=== PATIENT | female | born 1965 | race Caucasian/White ===

== ENCOUNTER 2016-03-22 12:36 | Inpatient (IN) | payer OTHER ==
[2016-03-22 13:41] VITALS: BMI 32.0
--- NOTE | 2016-03-22 15:24 | HP ---
Admission [facility] Chief Complaint: I was at [facility] for detox from alcohol, benzodiazapine and cocaine today and now ready for rehab. Allergies/Adverse Reactions: Allergies Allergy/AdvReac Type Severity Reaction Status Date / Time No Known Allergies Allergy Verified 03/22/16 13:25 History of Present Illness: pt is a 51yr old female with a history of alcohol, benzodiazpine and cocaine dependence seeking rehab for further treatment. Exam Limitations: No Limitations - Ebola screening Have you traveled outside of the country in the last 21 days: No Have you had contact with anyone from an Ebola affected area: No Have you been sick,other than usual withdrawal symptoms: No Do you have a fever: No - Review of Systems Constitutional: No Symptoms Reported EENT: reports: No Symptoms Reported Respiratory: reports: No Symptoms reported Cardiac: reports: No Symptoms Reported GI: reports: Constipated : reports: No Symptoms Reported Musculoskeletal: reports: No Symptoms Reported Integumentary: reports: No Symptoms Reported Neuro: reports: No Symptoms reported Endocrine: reports: No Symptoms Reported Hematology: reports: No Symptoms Reported Psychiatric: reports: Judgement Intact, Orientated x3, Agitated, Anxious Other Systems: Reviewed and Negative Patient History - Patient Medical History Hx Anemia: No Hx Asthma: No Hx Chronic Obstructive Pulmonary Disease (COPD): No Hx Cancer: No Hx Cardiac Disorders: No Hx Congestive Heart Failure: No Hx Hypertension: No Hx Hypercholesterolemia: No Hx Pacemaker: No HX Cerebrovascular Accident: No Hx Seizures: No Hx Dementia: No Hx Diabetes: No Hx Gastrointestinal Disorders: No Hx Liver Disease: No Hx Genitourinary Disorders: No Hx Sexually Transmitted Disorders: No Hx Renal Disease (ESRD): No Hx Thyroid Disease: No Hx Human Immunodeficiency Virus (HIV): No Hx Hepatitis C: Yes Hx Depression: No Hx Suicide Attempt: No (denies) Hx Bipolar Disorder: No Hx Schizophrenia: No - Patient Surgical History Past Surgical History: No - PPD History Previous Implant?: Yes Documented Results: Negative w/proof PPD to be Administered?: No - Reproductive History Patient is a Female of Child Bearing Age (11 -55 yrs old): Yes LMP comment: 6months ago Patient : No - Smoking Cessation Smoking history: Current every day smoker Have you smoked in the past 12 months: Yes Aproximately how many cigarettes per day: 2 Hx Chewing Tobacco Use: No Initiated information on smoking cessation: Yes 'Breaking Loose' booklet given: 03/22/16 - Substance & Tx. History Hx Alcohol Use: Yes Hx Substance Use: Yes Substance Use Type: Alcohol, Cocaine, Marijuana Family Disease History - Family Disease History Family History: Denies Admission Physical Exam [facility] - Vital Signs Vital Signs: Vital Signs - 24 hr 03/22/16 13:38 Temperature 97.3 F L Pulse Rate 50 L Respiratory 18 Rate Blood Pressure 141/75 - Physical General Appearance: Yes: Appropriately Dressed, Moderate Distress, Obese, Irritable, Sweating, Anxious HEENTM: Yes: Normal Voice Respiratory: Yes: Lungs Clear, Normal Breath Sounds, No Respiratory Distress Neck: Yes: No masses,lesions,Nodules Breast: Yes: Within Normal Limits Cardiology: Yes: Regular Rhythm, Regular Rate, S1, S2 Abdominal: Yes: Normal Bowel Sounds, Non Tender, Soft Genitourinary: Yes: Within Normal Limits Back: Yes: Normal Inspection Musculoskeletal: Yes: full range of Motion, Gait Steady Extremities: Yes: Normal Capillary Refill, Normal Inspection, Non-Tender, Tremors Neurological: Yes: Fully Oriented, Alert, Normal Response Integumentary: Yes: Normal Color, Diaphoresis Lymphatic: Yes: Within Normal Limits - Diagnostic (1) Alcohol abuse Current Visit: No Status: Chronic (2) Cocaine abuse Current Visit: No Status: Chronic (3) Nicotine dependence Current Visit: Yes Status: Chronic Qualifiers: Nicotine product type: cigarettes Substance use status: uncomplicated Qualified Code(s): F17.210 - Nicotine dependence, cigarettes, uncomplicated (4) Plaque psoriasis Current Visit: Yes Status: Chronic Cleared for Admission [facility] - Detox or Rehab [facility] Level of Care: Medically Managed Claeared for Rehab Admission: Yes [facility] Breath Alcohol Content Breath Alcohol Content: 0 Urine Pregancy Test - Result Urine Test Results: Negative- NO Line Present Urine Drug Screen - Results Drug Screen Negative: No Urine Drug Screen Results: MICHAEL-Cocaine, BZO-Benzodiazepines, MTD-Methadone
[2016-03-22] MEDS ORDERED: MENTHOL/PHENOL 1 EACH UD MM PRN (15:37)
[2016-03-22] MEDS ORDERED: MAG HYDROX/AL HYDROX/SIMETH 30 ML UNIT-DOSE CUP PO PRN (15:37)
[2016-03-22] MEDS ORDERED: LOPERAMIDE HCL 2 MG CAPSULE PO PRN (15:37)
[2016-03-22] MEDS ORDERED: ACETAMINOPHEN 325 MG TABLET (FP) PO PRN (15:37)
[2016-03-22] MEDS ORDERED: guaiFENesin/D-METHORPHAN HB 10 ML UNIT-DOSE CUPS PO PRN (15:37)
[2016-03-22] MEDS ORDERED: P-EPHED 60MG/TRIPROLIDI 2.5MG TABLET PO PRN (15:37)
[2016-03-22] MEDS ORDERED: IBUPROFEN 400 MG TABLET (FP) PO PRN (15:37)
[2016-03-22] MEDS ORDERED: MAGNESIUM CITRATE 300 ML BOTTLE PO PRN (15:37)
[2016-03-22] MEDS ORDERED: NICOTINE POLACRILEX 4 MG GUM BC PRN (15:37)
[2016-03-22] MEDS: FLUOCINONIDE 0.05% CREAM (60 GM TUBE) TP SCH ×2 (18:00→21:41)
[2016-03-22] MEDS: THIAMINE HCL 100 MG TABLET (FP) PO SCH (21:40)
[2016-03-22 22:36] LABS: URINE APPEARANCE CLEAR; URINE BILIRUBIN NEGATIVE (NEGATIVE); URINE BLOOD NEGATIVE (NEGATIVE); URINE COLOR YELLOW; URINE GLUCOSE (UA) NEGATIVE (NEGATIVE); URINE KETONE NEGATIVE (NEGATIVE); URINE LEUK ESTERASE NEGATIVE (NEGATIVE); URINE NITRITE NEGATIVE (NEGATIVE); URINE PROTEIN NEGATIVE (NEGATIVE); URINE UROBILINOGEN 2.0 E.U/dl E.U./dl (0.2-1.0)
[2016-03-23] MEDS ORDERED: METHADONE HCL 40 MG DISPERSABLE TABLET ONE (04:14)
[2016-03-23] MEDS ORDERED: METHADONE HCL 10 MG TABLET ONE (04:14)
[2016-03-23] MEDS ORDERED: METHADONE HCL 10 MG TABLET PO SCH (06:00)
[2016-03-23] MEDS: METHADONE 40 MG, METHADONE 30 MG PO SCH (06:25)
[2016-03-23] MEDS: PRENATAL VITAMINS W/ FOLIC ACID TABLET (FP) PO SCH (10:21)
[2016-03-23] MEDS: NICOTINE 21 MG/24 HOURS TOPICAL PATCH TD SCH (10:21)
[2016-03-23] MEDS: FLUOCINONIDE 0.05% CREAM (60 GM TUBE) TP SCH ×4 (10:21→21:41)
[2016-03-23 11:10] LABS: MCH 30.1 pg (25.7-33.7); MCHC 33.1 g/dl (32.0-36.0); MEAN CELL VOLUME 90.9 fl (80-96); MEAN PLT VOLUME 11.1 fl (7.5-11.1); PLATELET COUNT 80 K/MM3 (134-434); RDW 14.2 % (11.6-15.6); WHITE BLOOD COUNT 4.5 K/mm3 (4.0-10.0)
[2016-03-23 11:41] LABS: ALBUMIN 3.3 g/dl (3.4-5.0); SGOT/AST 76 U/L (15-37); SGPT/ALT 69 U/L (12-78)
[2016-03-23 11:43] LABS: ALK PHOS 92 U/L (45-117); ANION GAP 7 (8-16); BILIRUBIN,TOTAL 0.8 mg/dL (0.2-1.0); CALCIUM 8.1 mg/dL (8.5-10.1); CO2 33 mmol/L (21-32); CREATININE 0.8 mg/dL (0.55-1.02); GLUCOSE,RANDOM 62 mg/dL (74-106); TOT PROT 8.2 g/dl (6.4-8.2)
[2016-03-23 12:13] LABS: HIV 1 & 2 AB NEGATIVE; HIV 1 AGp24 NEGATIVE
[2016-03-23] MEDS ORDERED: PT OWN MED DRAWER 7, Y5N ONE (14:11)
[2016-03-23] MEDS: MAGNESIUM HYDROX 2400MG/30ML ORAL SUSPENSION 30 ML CUP PO PRN (17:10)
[2016-03-23] MEDS: diphenhydrAMINE HCL 50 MG CAPSULE PO PRN (21:42)
[2016-03-23] MEDS: THIAMINE HCL 100 MG TABLET (FP) PO SCH (21:42)
[2016-03-24] MEDS ORDERED: METHADONE HCL 10 MG TABLET ONE (04:06)
[2016-03-24] MEDS ORDERED: METHADONE HCL 40 MG DISPERSABLE TABLET ONE (04:07)
[2016-03-24] MEDS: METHADONE 40 MG, METHADONE 30 MG PO SCH (06:55)
[2016-03-24] MEDS: FLUOCINONIDE 0.05% CREAM (60 GM TUBE) TP SCH ×4 (10:44→22:01)
[2016-03-24] MEDS: NICOTINE 21 MG/24 HOURS TOPICAL PATCH TD SCH (10:44)
[2016-03-24] MEDS: PRENATAL VITAMINS W/ FOLIC ACID TABLET (FP) PO SCH (10:44)
[2016-03-24] MEDS: THIAMINE HCL 100 MG TABLET (FP) PO SCH (21:41)
[2016-03-24] MEDS: diphenhydrAMINE HCL 50 MG CAPSULE PO PRN (21:41)
--- NOTE | 2016-03-24 23:45 | EKG ---
Test Reason : Blood Pressure : / mmHG Vent. Rate : 051 BPM Atrial Rate : 051 BPM P-R Int : 130 ms QRS Dur : 090 ms QT Int : 454 ms P-R-T Axes : 052 047 022 degrees QTc Int : 418 ms SINUS BRADYCARDIA OTHERWISE NORMAL ECG NO PREVIOUS ECGS AVAILABLE Confirmed by MIRACLE MIJARES MD ([id number]) on 03/24/2016 11:44:35 PM Referred By: Confirmed By:MIRACLE MIJARES MD
[2016-03-25] MEDS ORDERED: METHADONE HCL 10 MG TABLET ONE (03:31)
[2016-03-25] MEDS ORDERED: METHADONE HCL 40 MG DISPERSABLE TABLET ONE (03:32)
[2016-03-25] MEDS: METHADONE 40 MG, METHADONE 30 MG PO SCH (06:37)
--- NOTE | 2016-03-25 10:17 | HP ---
Psychiatrist Admission - Data Date of interview: 03/25/16 Admission source: [facility] Identifying data: This is the first admission to [address] [place] [address] for this 51 years old single H female mother of 25 years old daughter,residing with with family,supported by PA. Medical History: Significant for Hep C,Psoriasis. Psychiatric History: No previous psychiatric history,but reports sleeping difficulties due to anxiety,drug use.Never being on any psychotropic medications.Medicated herself with alcohol and drugs. Physical/Sexual Abuse/Trauma History: denies Vital Signs: Vital Signs - 24 hr 03/24/16 03/25/16 03/25/16 12:01 00:30 03:30 Temperature Pulse Rate 50 L Respiratory 16 16 Rate Blood Pressure 144/83 03/25/16 07:34 Temperature 97.8 F Pulse Rate 46 L Respiratory 18 Rate Blood Pressure 155/75 Allergies/Adverse Reactions: Allergies Allergy/AdvReac Type Severity Reaction Status Date / Time No Known Allergies Allergy Verified 03/22/16 13:25 Date of last physical exam: 03/22/16 Concur with the findings of this exam: Yes - Substance Abuse/Tx History Hx Alcohol Use: Yes (reports started drinking since 13 yo(6 packs of beer)) Hx Substance Use: Yes (cocaine and heroin since 16 yo,MMTP 70 mg,Xanax since 2014) Substance Use Type: Alcohol, Cocaine, Heroin, Tranquilizers Hx Substance Use Treatment: Yes (no previous inpatient treatment) - Admission Criteria Previous failed treatment: Yes Poor recovery environment: Yes Comorbidities: Yes Lacks judgement: Yes Mental Status Exam - Mental Status Exam Alert and Oriented to: Time, Place, Person Cognitive Function: Grossly Intact Patient Appearance: Well Groomed Mood: Anxious Affect: Mood Congruent, Labile Patient Behavior: Cooperative Speech Pattern: Clear Voice Loudness: Normal Thought Process: Goal Oriented Thought Disorder: Not Present Hallucinations: Denies Suicidal Ideation: Denies Homicidal Ideation: Denies Insight/Judgement: Fair Sleep: Difficulty falling asleep Appetite: Good Muscle strength/Tone: Normal Gait/Station: Normal Psychiatric Findings - Problem List ([place] 1, 2,3) (1) Nicotine dependence Current Visit: Yes Status: Chronic Qualifiers: Nicotine product type: cigarettes Substance use status: uncomplicated Qualified Code(s): F17.210 - Nicotine dependence, cigarettes, uncomplicated (2) Plaque psoriasis Current Visit: Yes Status: Chronic (3) Alcohol abuse Current Visit: Yes Status: Chronic (4) Cocaine abuse Current Visit: Yes Status: Chronic (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
[2016-03-25] MEDS: FLUOCINONIDE 0.05% CREAM (60 GM TUBE) TP SCH ×4 (10:27→21:51)
[2016-03-25] MEDS: NICOTINE 21 MG/24 HOURS TOPICAL PATCH TD SCH (10:28)
[2016-03-25] MEDS: PRENATAL VITAMINS W/ FOLIC ACID TABLET (FP) PO SCH (10:28)
[2016-03-25] MEDS: hydrOXYzine PAMOATE 50 MG CAPSULE (FP) PO PRN (13:33)
[2016-03-25] MEDS: THIAMINE HCL 100 MG TABLET (FP) PO SCH (21:50)
[2016-03-25] MEDS: DOCUSATE SODIUM 100 MG CAPSULE (FP) PO SCH (21:52)
[2016-03-25] MEDS: traZODone HCL 50 MG TABLET (FP) PO SCH (21:52)
[2016-03-26] MEDS ORDERED: METHADONE 40 MG, METHADONE 30 MG PO SCH ×2 (06:00→14:00)
[2016-03-26] MEDS ORDERED: PT OWN MED DRAWER 7, Y5N ONE ×3 (08:48→17:09)
[2016-03-26] MEDS: FLUOCINONIDE 0.05% CREAM (60 GM TUBE) TP SCH ×4 (10:30→21:48)
[2016-03-26] MEDS: NICOTINE 21 MG/24 HOURS TOPICAL PATCH TD SCH (10:30)
[2016-03-26] MEDS: PRENATAL VITAMINS W/ FOLIC ACID TABLET (FP) PO SCH (10:30)
[2016-03-26] MEDS ORDERED: METHADONE HCL 10 MG TABLET ONE (12:46)
[2016-03-26] MEDS ORDERED: METHADONE HCL 40 MG DISPERSABLE TABLET ONE (12:47)
[2016-03-26] MEDS: METHADONE 40 MG, METHADONE 30 MG PO SCH (13:20)
[2016-03-26] MEDS: traZODone HCL 50 MG TABLET (FP) PO SCH (21:49)
[2016-03-26] MEDS: DOCUSATE SODIUM 100 MG CAPSULE (FP) PO SCH (21:49)
[2016-03-26] MEDS: THIAMINE HCL 100 MG TABLET (FP) PO SCH (21:49)
[2016-03-27] MEDS: PRENATAL VITAMINS W/ FOLIC ACID TABLET (FP) PO SCH (10:35)
[2016-03-27] MEDS: FLUOCINONIDE 0.05% CREAM (60 GM TUBE) TP SCH ×4 (10:35→21:53)
[2016-03-27] MEDS: NICOTINE 21 MG/24 HOURS TOPICAL PATCH TD SCH (10:35)
[2016-03-27] MEDS: hydrOXYzine PAMOATE 50 MG CAPSULE (FP) PO PRN (10:37)
--- NOTE | 2016-03-27 12:02 | PN ---
[facility] Progress Note Note: Vital Signs (72 hours) discussed behavioral modifications: diet, wt loss and exercise to see if p will decrease overtime as she detoxes off alcohol and benzodiazepines. 03/24/16 03/25/16 03/25/16 12:01 00:30 03:30 Temperature Pulse Rate 50 L Respiratory 16 16 Rate Blood Pressure 144/83 03/25/16 03/26/16 03/26/16 07:34 00:30 03:30 Temperature 97.8 F Pulse Rate 46 L Respiratory 18 16 16 Rate Blood Pressure 155/75 03/26/16 03/27/16 03/27/16 07:01 00:30 03:30 Temperature 97.7 F Pulse Rate 68 Respiratory 16 18 18 Rate Blood Pressure 156/78 03/27/16 03/27/16 07:32 09:40 Temperature 97.3 F L Pulse Rate 56 L 56 L Respiratory 18 Rate Blood Pressure 206/70 144/84
[2016-03-27] MEDS ORDERED: METHADONE HCL 10 MG TABLET ONE (12:27)
[2016-03-27] MEDS ORDERED: METHADONE HCL 40 MG DISPERSABLE TABLET ONE (12:27)
[2016-03-27] MEDS: METHADONE 40 MG, METHADONE 30 MG PO SCH (13:01)
[2016-03-27] MEDS: traZODone HCL 50 MG TABLET (FP) PO SCH (21:52)
[2016-03-27] MEDS: THIAMINE HCL 100 MG TABLET (FP) PO SCH (21:52)
[2016-03-27] MEDS: DOCUSATE SODIUM 100 MG CAPSULE (FP) PO SCH (21:52)
[2016-03-28] MEDS: NICOTINE 21 MG/24 HOURS TOPICAL PATCH TD SCH (10:37)
[2016-03-28] MEDS: PRENATAL VITAMINS W/ FOLIC ACID TABLET (FP) PO SCH (10:51)
[2016-03-28] MEDS: FLUOCINONIDE 0.05% CREAM (60 GM TUBE) TP SCH ×4 (10:51→21:33)
[2016-03-28] MEDS ORDERED: METHADONE HCL 10 MG TABLET ONE (12:10)
[2016-03-28] MEDS ORDERED: METHADONE HCL 40 MG DISPERSABLE TABLET ONE (12:12)
[2016-03-28] MEDS: METHADONE 40 MG, METHADONE 30 MG PO SCH (13:38)
[2016-03-28] MEDS: traZODone HCL 50 MG TABLET (FP) PO SCH (21:32)
[2016-03-28] MEDS: DOCUSATE SODIUM 100 MG CAPSULE (FP) PO SCH (21:32)
[2016-03-28] MEDS: THIAMINE HCL 100 MG TABLET (FP) PO SCH (21:32)
[2016-03-29] MEDS ORDERED: PT OWN MED DRAWER 7, Y5N ONE ×2 (08:37→13:30)
[2016-03-29] MEDS: PRENATAL VITAMINS W/ FOLIC ACID TABLET (FP) PO SCH (11:01)
[2016-03-29] MEDS: NICOTINE 21 MG/24 HOURS TOPICAL PATCH TD SCH (11:01)
[2016-03-29] MEDS: FLUOCINONIDE 0.05% CREAM (60 GM TUBE) TP SCH ×4 (11:02→21:48)
[2016-03-29] MEDS ORDERED: METHADONE HCL 10 MG TABLET ONE (13:20)
[2016-03-29] MEDS ORDERED: METHADONE HCL 40 MG DISPERSABLE TABLET ONE (13:21)
[2016-03-29] MEDS: METHADONE 40 MG, METHADONE 30 MG PO SCH (13:25)
[2016-03-29] MEDS: traZODone HCL 50 MG TABLET (FP) PO SCH (21:47)
[2016-03-29] MEDS: THIAMINE HCL 100 MG TABLET (FP) PO SCH (21:47)
[2016-03-29] MEDS: DOCUSATE SODIUM 100 MG CAPSULE (FP) PO SCH (21:47)
[2016-03-30] MEDS: NICOTINE 21 MG/24 HOURS TOPICAL PATCH TD SCH (10:32)
[2016-03-30] MEDS: PRENATAL VITAMINS W/ FOLIC ACID TABLET (FP) PO SCH (10:32)
[2016-03-30] MEDS: FLUOCINONIDE 0.05% CREAM (60 GM TUBE) TP SCH ×4 (10:32→21:33)
[2016-03-30] MEDS ORDERED: METHADONE HCL 40 MG DISPERSABLE TABLET ONE (12:43)
[2016-03-30] MEDS ORDERED: METHADONE HCL 10 MG TABLET ONE (12:43)
[2016-03-30] MEDS: METHADONE 40 MG, METHADONE 30 MG PO SCH (13:02)
[2016-03-30] MEDS: DOCUSATE SODIUM 100 MG CAPSULE (FP) PO SCH (21:33)
[2016-03-30] MEDS: THIAMINE HCL 100 MG TABLET (FP) PO SCH (21:33)
[2016-03-30] MEDS: traZODone HCL 50 MG TABLET (FP) PO SCH (21:33)
[2016-03-31] MEDS: FLUOCINONIDE 0.05% CREAM (60 GM TUBE) TP SCH ×4 (10:19→21:35)
[2016-03-31] MEDS: PRENATAL VITAMINS W/ FOLIC ACID TABLET (FP) PO SCH (10:20)
[2016-03-31] MEDS: NICOTINE 21 MG/24 HOURS TOPICAL PATCH TD SCH (10:20)
[2016-03-31] MEDS ORDERED: METHADONE HCL 10 MG TABLET ONE (12:25)
[2016-03-31] MEDS ORDERED: METHADONE HCL 40 MG DISPERSABLE TABLET ONE (12:26)
[2016-03-31] MEDS: METHADONE 40 MG, METHADONE 30 MG PO SCH (13:01)
[2016-03-31] MEDS: DOCUSATE SODIUM 100 MG CAPSULE (FP) PO SCH (21:35)
[2016-03-31] MEDS: THIAMINE HCL 100 MG TABLET (FP) PO SCH (21:35)
[2016-03-31] MEDS: traZODone HCL 50 MG TABLET (FP) PO SCH (21:35)
[2016-04-01] MEDS: PRENATAL VITAMINS W/ FOLIC ACID TABLET (FP) PO SCH (10:16)
[2016-04-01] MEDS: FLUOCINONIDE 0.05% CREAM (60 GM TUBE) TP SCH ×4 (10:16→21:41)
[2016-04-01] MEDS: NICOTINE 21 MG/24 HOURS TOPICAL PATCH TD SCH (10:17)
[2016-04-01] MEDS: hydrOXYzine PAMOATE 50 MG CAPSULE (FP) PO PRN (10:17)
[2016-04-01] MEDS ORDERED: METHADONE HCL 40 MG DISPERSABLE TABLET ONE (10:57)
[2016-04-01] MEDS ORDERED: METHADONE HCL 10 MG TABLET ONE (10:57)
[2016-04-01] MEDS ORDERED: METHADONE HCL 10 MG TABLET PO SCH (14:30)
[2016-04-01] MEDS: METHADONE 40 MG, METHADONE 30 MG PO SCH (14:41)
[2016-04-01] MEDS ORDERED: PT OWN MED DRAWER 7, Y5N ONE (14:46)
[2016-04-01] MEDS: amLODIPine BESYLATE 5 MG TABLET (FP) PO SCH (14:48)
[2016-04-01] MEDS: DOCUSATE SODIUM 100 MG CAPSULE (FP) PO SCH (21:40)
[2016-04-01] MEDS: traZODone HCL 50 MG TABLET (FP) PO SCH (21:40)
[2016-04-01] MEDS: THIAMINE HCL 100 MG TABLET (FP) PO SCH (21:40)
[2016-04-02] MEDS: PRENATAL VITAMINS W/ FOLIC ACID TABLET (FP) PO SCH (10:15)
[2016-04-02] MEDS: NICOTINE 21 MG/24 HOURS TOPICAL PATCH TD SCH (10:16)
[2016-04-02] MEDS: FLUOCINONIDE 0.05% CREAM (60 GM TUBE) TP SCH ×4 (10:16→21:41)
[2016-04-02] MEDS: amLODIPine BESYLATE 5 MG TABLET (FP) PO SCH (10:16)
[2016-04-02] MEDS ORDERED: METHADONE HCL 10 MG TABLET ONE (11:19)
[2016-04-02] MEDS ORDERED: METHADONE HCL 40 MG DISPERSABLE TABLET ONE (11:19)
[2016-04-02] MEDS: MAGNESIUM HYDROX 2400MG/30ML ORAL SUSPENSION 30 ML CUP PO PRN (12:11)
[2016-04-02] MEDS: METHADONE 40 MG, METHADONE 30 MG PO SCH (13:41)
[2016-04-02] MEDS ORDERED: PT OWN MED DRAWER 7, Y5N ONE (13:45)
[2016-04-02] MEDS: DOCUSATE SODIUM 100 MG CAPSULE (FP) PO SCH (21:39)
[2016-04-02] MEDS: traZODone HCL 50 MG TABLET (FP) PO SCH (21:39)
[2016-04-02] MEDS: THIAMINE HCL 100 MG TABLET (FP) PO SCH (21:39)
[2016-04-03] MEDS ORDERED: PT OWN MED DRAWER 7, Y5N ONE ×2 (08:44→20:15)
[2016-04-03] MEDS: PRENATAL VITAMINS W/ FOLIC ACID TABLET (FP) PO SCH (10:16)
[2016-04-03] MEDS: amLODIPine BESYLATE 5 MG TABLET (FP) PO SCH (10:16)
[2016-04-03] MEDS: FLUOCINONIDE 0.05% CREAM (60 GM TUBE) TP SCH ×4 (10:17→21:32)
[2016-04-03] MEDS: NICOTINE 21 MG/24 HOURS TOPICAL PATCH TD SCH (10:17)
[2016-04-03] MEDS ORDERED: METHADONE HCL 40 MG DISPERSABLE TABLET ONE (11:07)
[2016-04-03] MEDS ORDERED: METHADONE HCL 10 MG TABLET ONE (11:07)
[2016-04-03] MEDS: METHADONE 40 MG, METHADONE 30 MG PO SCH (13:07)
[2016-04-03] MEDS: DOCUSATE SODIUM 100 MG CAPSULE (FP) PO SCH (21:31)
[2016-04-03] MEDS: traZODone HCL 50 MG TABLET (FP) PO SCH (21:31)
[2016-04-03] MEDS: THIAMINE HCL 100 MG TABLET (FP) PO SCH (21:31)
[2016-04-04] MEDS: FLUOCINONIDE 0.05% CREAM (60 GM TUBE) TP SCH ×4 (10:35→21:35)
[2016-04-04] MEDS: PRENATAL VITAMINS W/ FOLIC ACID TABLET (FP) PO SCH (10:35)
[2016-04-04] MEDS: amLODIPine BESYLATE 5 MG TABLET (FP) PO SCH (10:35)
[2016-04-04] MEDS: NICOTINE 21 MG/24 HOURS TOPICAL PATCH TD SCH (10:36)
[2016-04-04] MEDS ORDERED: METHADONE HCL 40 MG DISPERSABLE TABLET ONE (11:38)
[2016-04-04] MEDS ORDERED: METHADONE HCL 10 MG TABLET ONE (11:38)
[2016-04-04] MEDS: METHADONE 40 MG, METHADONE 30 MG PO SCH (13:08)
[2016-04-04] MEDS ORDERED: PT OWN MED DRAWER 7, Y5N ONE (13:25)
[2016-04-04] MEDS: MAGNESIUM HYDROX 2400MG/30ML ORAL SUSPENSION 30 ML CUP PO PRN (18:00)
[2016-04-04] MEDS: traZODone HCL 50 MG TABLET (FP) PO SCH (21:35)
[2016-04-04] MEDS: THIAMINE HCL 100 MG TABLET (FP) PO SCH (21:35)
[2016-04-04] MEDS: DOCUSATE SODIUM 100 MG CAPSULE (FP) PO SCH (21:35)
[2016-04-04] MEDS: hydrOXYzine PAMOATE 50 MG CAPSULE (FP) PO PRN (21:36)
[2016-04-05] MEDS ORDERED: PT OWN MED DRAWER 7, Y5N ONE (08:59)
[2016-04-05] MEDS: amLODIPine BESYLATE 5 MG TABLET (FP) PO SCH ×2 (10:32→21:54)
[2016-04-05] MEDS: FLUOCINONIDE 0.05% CREAM (60 GM TUBE) TP SCH ×4 (10:32→22:18)
[2016-04-05] MEDS: PRENATAL VITAMINS W/ FOLIC ACID TABLET (FP) PO SCH (10:32)
[2016-04-05] MEDS: NICOTINE 21 MG/24 HOURS TOPICAL PATCH TD SCH (10:32)
[2016-04-05] MEDS ORDERED: METHADONE HCL 10 MG TABLET ONE (12:18)
[2016-04-05] MEDS ORDERED: METHADONE HCL 40 MG DISPERSABLE TABLET ONE (12:19)
[2016-04-05] MEDS: METHADONE 40 MG, METHADONE 30 MG PO SCH (13:23)
[2016-04-05] MEDS: traZODone HCL 50 MG TABLET (FP) PO SCH (21:51)
[2016-04-05] MEDS: THIAMINE HCL 100 MG TABLET (FP) PO SCH (21:51)
[2016-04-05] MEDS: DOCUSATE SODIUM 100 MG CAPSULE (FP) PO SCH (21:51)
[2016-04-06] MEDS: FLUOCINONIDE 0.05% CREAM (60 GM TUBE) TP SCH ×4 (10:25→21:46)
[2016-04-06] MEDS: NICOTINE 21 MG/24 HOURS TOPICAL PATCH TD SCH (10:26)
[2016-04-06] MEDS: PRENATAL VITAMINS W/ FOLIC ACID TABLET (FP) PO SCH (10:26)
[2016-04-06] MEDS: amLODIPine BESYLATE 5 MG TABLET (FP) PO SCH ×2 (10:26→21:46)
[2016-04-06] MEDS ORDERED: METHADONE HCL 10 MG TABLET ONE (12:35)
[2016-04-06] MEDS ORDERED: METHADONE HCL 40 MG DISPERSABLE TABLET ONE (12:36)
[2016-04-06] MEDS: METHADONE 40 MG, METHADONE 30 MG PO SCH (13:02)
[2016-04-06] MEDS: traZODone HCL 50 MG TABLET (FP) PO SCH (21:45)
[2016-04-06] MEDS: THIAMINE HCL 100 MG TABLET (FP) PO SCH (21:45)
[2016-04-06] MEDS: DOCUSATE SODIUM 100 MG CAPSULE (FP) PO SCH (21:45)
[2016-04-07] MEDS: PRENATAL VITAMINS W/ FOLIC ACID TABLET (FP) PO SCH (10:07)
[2016-04-07] MEDS: NICOTINE 21 MG/24 HOURS TOPICAL PATCH TD SCH (10:07)
[2016-04-07] MEDS: amLODIPine BESYLATE 5 MG TABLET (FP) PO SCH ×2 (10:07→21:10)
[2016-04-07] MEDS: FLUOCINONIDE 0.05% CREAM (60 GM TUBE) TP SCH ×4 (10:07→21:09)
[2016-04-07] MEDS ORDERED: METHADONE HCL 10 MG TABLET ONE (11:40)
[2016-04-07] MEDS ORDERED: METHADONE HCL 40 MG DISPERSABLE TABLET ONE (11:40)
[2016-04-07] MEDS: METHADONE 40 MG, METHADONE 30 MG PO SCH (13:29)
[2016-04-07] MEDS ORDERED: PT OWN MED DRAWER 7, Y5N ONE (13:34)
[2016-04-07] MEDS: DOCUSATE SODIUM 100 MG CAPSULE (FP) PO SCH (21:09)
[2016-04-07] MEDS: traZODone HCL 50 MG TABLET (FP) PO SCH (21:09)
[2016-04-07] MEDS: THIAMINE HCL 100 MG TABLET (FP) PO SCH (21:09)
[2016-04-08] MEDS: amLODIPine BESYLATE 5 MG TABLET (FP) PO SCH ×2 (10:24→21:37)
[2016-04-08] MEDS: PRENATAL VITAMINS W/ FOLIC ACID TABLET (FP) PO SCH (10:24)
[2016-04-08] MEDS: hydrOXYzine PAMOATE 50 MG CAPSULE (FP) PO PRN (10:25)
[2016-04-08] MEDS: NICOTINE 21 MG/24 HOURS TOPICAL PATCH TD SCH (10:26)
[2016-04-08] MEDS: FLUOCINONIDE 0.05% CREAM (60 GM TUBE) TP SCH ×4 (10:26→21:37)
[2016-04-08] MEDS ORDERED: METHADONE HCL 10 MG TABLET ONE (13:11)
[2016-04-08] MEDS ORDERED: METHADONE HCL 40 MG DISPERSABLE TABLET ONE (13:11)
[2016-04-08] MEDS: METHADONE 40 MG, METHADONE 30 MG PO SCH (13:12)
--- NOTE | 2016-04-08 17:09 | PN ---
[id number] F 58-61 8-18 129-156/72-81 Date of Session: 04/08/16 Chief Complaint:: Discharge visit HPI: Patient addressed Alcohol.Opioid,Cocaine and Anxiolytic abuse comorbid with Substance induced mood disorder. ROS: Hep C. Current Medications: Active Medications Generic Name Dose Route Start Last Admin Trade Name Freq PRN Reason Stop Dose Admin Acetaminophen 650 mg 03/22/16 15:37 Tylenol - PO Q4H PRN PAIN Al Hydroxide/Mg Hydroxide 30 ml 03/22/16 15:37 03/26/16 18:03 Mylanta Oral Suspension - PO 30 ml Q6H PRN Administration DYSPEPSIA Amlodipine Besylate 5 mg 04/05/16 22:00 04/08/16 10:24 Norvasc - PO 5 mg BID MADHU Administration Diphenhydramine HCl 50 mg 03/22/16 15:37 03/24/16 21:41 Benadryl - PO 50 mg HSMR1 PRN Administration INSOMNIA Docusate Sodium 300 mg 03/25/16 22:00 04/07/16 21:09 Colace - PO 300 mg HS MADHU Administration Eucalyptus/Menthol/Phenol/Sorbitol 1 each 03/22/16 15:37 Cepastat Lozenge - MM Q4H PRN SORE THROAT Fluocinonide 1 applic 03/22/16 18:00 04/08/16 13:13 Lidex 0.05% Cream - TP Not Given QID MADHU Guaifenesin 10 ml 03/22/16 15:37 Robitussin Dm - PO Q6H PRN COUGH Hydroxyzine Pamoate 50 mg 03/22/16 15:37 04/08/16 10:25 Vistaril - PO 50 mg Q4H PRN Administration AGITATION Ibuprofen 400 mg 03/22/16 15:37 Motrin - PO Q6H PRN SEVERE PAIN Loperamide HCl 4 mg 03/22/16 15:37 Imodium - PO Q6H PRN DIARRHEA Magnesium Citrate 300 ml 03/22/16 15:37 Citroma - PO Q48H PRN CONSTIPATION Magnesium Hydroxide 30 ml 03/22/16 15:37 04/04/16 18:00 Milk Of Magnesia - PO 30 ml DAILY PRN Administration CONSTIPATION Nicotine 21 mg 03/23/16 10:00 04/08/16 10:26 Nicoderm Patch - TD Not Given DAILY MADHU Nicotine Polacrilex 4 mg 03/22/16 15:37 03/24/16 14:20 Nicorette Gum - BC 4 mg Q2H PRN Administration NICOTINE REPLACEMENT RX Multivit/Folic Acid/Iron 1 tab 03/23/16 10:00 04/08/16 10:24 Vitamins (Sjr) - PO 1 tab DAILY MADHU Administration Pseudoephedrine/Triprolidine 1 combo 03/22/16 15:37 Actifed - PO TID PRN NASAL CONGESTION Thiamine HCl 100 mg 03/22/16 22:00 04/07/16 21:09 Vitamin B1 - PO 100 mg HS MADHU Administration Trazodone HCl 50 mg 03/25/16 22:00 04/07/16 21:09 Desyrel - PO 50 mg HS MADHU Administration Current Side Effect: No Lab tests ordered: No Lab tests reviewed: Yes Provider note:: Patient will complete this program tomorrow 04/09/16 .She has met her treatment goals and will continue to address her issues on outpatient basis at [facility].Patient continues to find that Trazodone 50 mg po hs helps to reduce her sleeping problems.Script for 30 days provided. Patient identifies areas of difficulties and coping skills,support she can utilze to maintain recovery. Patient is stable for discharge tomorrow . Total face to face time:: 30 Mental Status Exam - Mental Status Exam Alert and Oriented to: Time, Place, Person Cognitive Function: Grossly Intact Patient Appearance: Well Groomed Mood: Euthymic Affect: Mood Congruent Patient Behavior: Cooperative Speech Pattern: Clear Voice Loudness: Normal Thought Process: Goal Oriented Thought Disorder: Not Present Hallucinations: Denies Suicidal Ideation: Denies Homicidal Ideation: Denies Insight/Judgement: Fair Sleep: Fair Appetite: Good Muscle strength/Tone: Normal Gait/Station: Normal Psychiatric Treatment Plan - Problem List (1) Nicotine dependence Qualifiers: Nicotine product type: cigarettes Substance use status: uncomplicated Qualified Code(s): F17.210 - Nicotine dependence, cigarettes, uncomplicated
[2016-04-08] MEDS: DOCUSATE SODIUM 100 MG CAPSULE (FP) PO SCH (21:36)
[2016-04-08] MEDS: THIAMINE HCL 100 MG TABLET (FP) PO SCH (21:36)
[2016-04-08] MEDS: traZODone HCL 50 MG TABLET (FP) PO SCH (21:36)
[2016-04-08] MEDS: MAGNESIUM HYDROX 2400MG/30ML ORAL SUSPENSION 30 ML CUP PO PRN (22:07)
[2016-04-09 06:57] VITALS: TEMP 97.5
[2016-04-09] MEDS ORDERED: PT OWN MED DRAWER 7, Y5N ONE (08:53)
[2016-04-09] MEDS: PRENATAL VITAMINS W/ FOLIC ACID TABLET (FP) PO SCH (09:09)
[2016-04-09] MEDS: FLUOCINONIDE 0.05% CREAM (60 GM TUBE) TP SCH (09:09)
[2016-04-09] MEDS: NICOTINE 21 MG/24 HOURS TOPICAL PATCH TD SCH (09:10)
[2016-04-09 09:34] VITALS: BP 114/73; PULSE 59
[2016-04-09] MEDS ORDERED: amLODIPine BESYLATE 10 MG TABLET (FP) PO SCH (10:00)
[2016-04-09] MEDS ORDERED: amLODIPine BESYLATE 5 MG TABLET (FP) PO SCH (10:00)
== END 2016-04-09 09:43 | disposition home or self-care (01) | DRG 772 ==
LOC: YASAS 12:36 → Y3E 15:21
PROVIDERS: ADMIT Psychiatry & Neurology Psychiatry; ATTEND Psychiatry & Neurology Psychiatry
PROC: HZ42ZZZ Group Counseling for Substance Abuse Treatment, Cognitive-Behavioral (ICD-10-PCS; principal; 2016-04-09)
DX: F11.20 Opioid dependence, uncomplicated (principal); F13.20 Sedative, hypnotic or anxiolytic dependence, uncomplicated; F17.210 Nicotine dependence, cigarettes, uncomplicated; F14.10 Cocaine abuse, uncomplicated; F19.24 Other psychoactive substance dependence with psychoactive substance-induced mood disorder; B18.2 Chronic viral hepatitis C; L40.0 Psoriasis vulgaris
CPT/HCPCS: 36415; 80053; 81003; 85027; 86593; 87389; 93005; 93010